=== PATIENT | male | born 1960 | race Caucasian/White ===

== ENCOUNTER 2023-09-27 16:00 | Outpatient (CLI) | payer BC | END 2023-09-27 16:01 | disposition home or self-care (01) | LOC: SLEEPLAB 16:00 | PROVIDERS: ATTEND Nurse Practitioner | DX: G47.33 Obstructive sleep apnea (adult) (pediatric) (principal); R51.9 Headache, unspecified; E66.9 Obesity, unspecified; R06.83 Snoring; G47.00 Insomnia, unspecified; I48.91 Unspecified atrial fibrillation; Z68.43 Body mass index [BMI] 50.0-59.9, adult | CPT/HCPCS: 95800 ==

== ENCOUNTER 2024-03-08 07:05 | Day surgery (SDC) | payer BC ==
[2024-03-04 10:11] VITALS: BMI 55.7
[2024-03-08] MEDS ORDERED: Midazolam HCl 2 mg/2 ml Vial ONE (07:57)
[2024-03-08] MEDS ORDERED: KETAMINE 100 MG/ML (5ML VIAL) ONE (07:57)
[2024-03-08] MEDS ORDERED: PROPOFOL 20 ML ONE (08:05)
[2024-03-08] MEDS ORDERED: GLYCOPYRROLATE/PF 0.2 MG/ML VIAL ONE (08:08)
[2024-03-08] MEDS ORDERED: Ondansetron PF 4 MG/2 ML Vial ONE (08:13)
[2024-03-08] MEDS ORDERED: Metoprolol Tartrate 5 MG (5 mL) VIAL ONE (08:32)
== END 2024-03-08 10:00 | disposition home or self-care (01) ==
LOC: SDC 07:05
PROVIDERS: ATTEND Internal Medicine
PROC: 0DBP8ZZ Excision of Rectum, Via Natural or Artificial Opening Endoscopic (ICD-10-PCS; principal; 2024-03-08)
PROC: 0DBK8ZZ Excision of Ascending Colon, Via Natural or Artificial Opening Endoscopic (ICD-10-PCS; principal; 2024-03-08)
PROC: 0DBL8ZZ Excision of Transverse Colon, Via Natural or Artificial Opening Endoscopic (ICD-10-PCS; principal; 2024-03-08)
DX: Z12.11 Encounter for screening for malignant neoplasm of colon (principal); D12.2 Benign neoplasm of ascending colon; D12.3 Benign neoplasm of transverse colon; K63.5 Polyp of colon; K74.60 Unspecified cirrhosis of liver; K76.0 Fatty (change of) liver, not elsewhere classified; K57.30 Diverticulosis of large intestine without perforation or abscess without bleeding; I10 Essential (primary) hypertension; I48.91 Unspecified atrial fibrillation; G47.30 Sleep apnea, unspecified; E66.01 Morbid (severe) obesity due to excess calories; Z68.43 Body mass index [BMI] 50.0-59.9, adult; Z79.82 Long term (current) use of aspirin; Z79.899 Other long term (current) drug therapy
CPT/HCPCS: 88305; J2250; J2405; J2704; J3490